=== PATIENT | female | born 1995 | race Two or more races ===

== ENCOUNTER 2023-03-21 16:13 | Outpatient (CLI) | payer OTHER | END 2023-03-21 17:27 | disposition home or self-care (01) | LOC: PRENATAL 16:13 | PROVIDERS: ATTEND Obstetrics & Gynecology Maternal & Fetal Medicine | DX: O35.3XX0 Maternal care for (suspected) damage to fetus from viral disease in mother, not applicable or unspecified (principal); O44.00 Complete placenta previa NOS or without hemorrhage, unspecified trimester; Z3A.22 22 weeks gestation of pregnancy ==

== ENCOUNTER 2023-04-04 15:35 | Outpatient (CLI) | payer OTHER | END 2023-04-04 15:40 | disposition home or self-care (01) | LOC: PRENATAL 15:35 | PROVIDERS: ATTEND Obstetrics & Gynecology Maternal & Fetal Medicine | DX: O26.879 Cervical shortening, unspecified trimester (principal); Z3A.24 24 weeks gestation of pregnancy ==

== ENCOUNTER 2023-05-01 15:58 | Outpatient (CLI) | payer OTHER | END 2023-05-01 16:02 | disposition home or self-care (01) | LOC: PRENATAL 15:58 | PROVIDERS: ATTEND Obstetrics & Gynecology Maternal & Fetal Medicine | DX: O26.849 Uterine size-date discrepancy, unspecified trimester (principal); O26.879 Cervical shortening, unspecified trimester; Z3A.28 28 weeks gestation of pregnancy ==

== ENCOUNTER 2023-06-13 15:46 | Outpatient (CLI) | payer OTHER | END 2023-06-13 15:47 | disposition home or self-care (01) | LOC: PRENATAL 15:46 | PROVIDERS: ATTEND Obstetrics & Gynecology Maternal & Fetal Medicine | DX: O26.849 Uterine size-date discrepancy, unspecified trimester (principal); O36.8199 Decreased fetal movements, unspecified trimester, other fetus; Z3A.34 34 weeks gestation of pregnancy ==